=== PATIENT | male | born 1985 | race Caucasian/White ===

== ENCOUNTER 2019-06-23 12:21 | Emergency (ER) | payer OTHER, SELFPAY ==
[2019-06-23 12:23] VITALS: BP 142/73; PULSE 86; RESP 17; TEMP 36.8; O2SAT 99; BMI 33.0
--- NOTE | 2019-06-23 13:19 | CT_ITS ---
STUDY: CT BRAIN WITHOUT CONTRAST REASON FOR EXAM: Male, 34 years old. NUMBNESS RADIATION DOSAGE (If Supplied By Facility): CTDIvol = ( 44.99 ) mGy, DLP = ( 796.11 ) mGycm TECHNIQUE: Transaxial CT imaging of the brain was performed without administration of intravenous contrast material. Individualized dose optimization techniques were used for this CT. COMPARISON: No relevant priors. FINDINGS: Normal soft tissue structures. Normal calvarium. Normal size ventricles and extra-axial spaces for the patient''s age. Normal white matter tracts of the cerebral hemispheres. Normal basal ganglia and thalami. Normal brainstem. Normal cerebellum. There is no intracranial hemorrhage. There are no findings of an acute ischemic infarction. Mucosal thickening of the ethmoid sinuses bilaterally. Bilateral frontal sinusitis. CT/Brain/Head without Contrast IMPRESSION: Mucosal thickening of the ethmoid sinuses bilaterally. Bilateral frontal sinusitis. Electronically Signed: Anibal Villanueva, at 14:00 EST , Service support ,
--- NOTE | 2019-06-23 13:20 | CT_ITS ---
STUDY: CT SOFT TISSUE NECK WITHOUT CONTRAST REASON FOR EXAM: Male, 34 years old. NUMBNESS RADIATION DOSAGE (If Supplied By Facility): CTDIvol = ( 17.89 ) mGy, DLP = ( 540.53 ) mGycm TECHNIQUE: The patient was scanned in a multi-detector CT scanner. High resolution transaxial imaging was performed without the administration of intravenous contrast material. Sagittal and coronal images were reconstructed. Individualized dose optimization techniques were used for this CT. COMPARISON: None. FINDINGS: Normal bilateral parotid glands. Normal bilateral assistant broker spaces. Normal bilateral parapharyngeal spaces. Normal bilateral carotid spaces. Normal bilateral sublingual and submandibular glands and spaces. Normal visualized nasopharynx. Normal retropharyngeal space. Normal perivertebral space. Normal visualized bilateral faucial tonsils. The visualized tongue, tongue base and oropharynx are normal. The visualized cervical lymph nodes (levels I-) are within normal size limits, and maintain normal morphology. There is no demonstrated solid or cystic mass lesion. Normal epiglottis, bilateral vallecula and hypopharynx. The pre-epiglottic and paraglottic adipose spaces are normal. Normal visualized bilateral piriform sinuses, aryepiglottic folds, vocal cords, and arytenoid-cricoid articulations. Normal subglottic trachea. Normal bilateral lobes of the thyroid gland. Normal visualized pulmonary apices. Mucosal polyps or retention cysts in the left maxillary sinus. Minimal thickening of the right maxillary sinus. Mucosal thickening of the ethmoid sinuses bilaterally as well as the frontal sinuses. Straightening of the normal cervical lordosis. CT/Soft Tissue Neck without Contr IMPRESSION: Sinusitis. Electronically Signed: Anibal Villanueva, at 14:02 EST , Service support ,
--- NOTE | 2019-06-23 14:30 | ED.DCSUM_ITS ---
- ER Visit Summary Date of Service: 06/23/19 Chief Complaint: Numbness to lower lip History of Present Illness: The patient is a 34 M who presents with numbness and tingling to his lower lip and the tip of his tongue that began today. Patient states it is gradually gotten worse throughout the day. Patient states it is localized to the lower lip, chin, and tip of his tongue. Patient denies any headaches. Patient denies any difficulty talking. Patient denies any difficulty swallowing. Patient denies any difficulty breathing. Patient denies any other facial numbness or weakness. Patient denies any extremity numbness or weakness. Physical Examination: Vital signs are stable. Patient is afebrile. Patient is in no acute distress. Oral mucosa is pink and moist. Tongue is midline. There is good motion of the tongue. Oropharynx is clear. Airway is patent. Neck is supple. Trachea is midline. There is no JVD. There is no lymphadenopathy noted. Cranial nerves II through XII are intact. Strength is 5/5 bilateral knee upper and lower extremities. There is good range of motion. There is some decreased sensation to the lower lip and anterior chin. There is no edema, erythema, ecchymosis, discharge, or drainage. Heart was regular rate and rhythm. Lungs are clear and equal bilaterally. Test Results: CT scan of the brain was obtained. There is no acute intracranial abnormality. CT scan of the soft tissue neck was obtained. There is no abscess or mass. There is evidence of sinusitis on the CT scans. These were interpreted by the radiologist and reviewed by myself. Emergency Department Course and Treatment: Patient was feeling better on reevaluation. Patient was advised of his findings. Patient was instructed to follow-up with his primary care physician in 5 to 7 days. Patient understood and was agreeable with the plan. All questions were answered. Disposition: Discharge home Impression: Facial paresthesias This note was generated with [employer] dictation software. It may contain incorrect words, spelling, and punctuation that were not noted in review of the chart prior to signing ED Disposition - Plan for ED Patient: Disposition: Home or Assisted Living Diagnosis: Facial paresthesia Instructions: Paraesthesias Referrals: Care Physician,No Primary [Primary Care Provider] - Sharon Fernandez MD [STAFF PHYSICIAN] - 5-7 Days
== END 2019-06-23 14:40 | disposition home or self-care (01) ==
PROVIDERS: Emergency Provider Emergency Medicine
DX: R20.2 Paresthesia of skin (principal); E66.9 Obesity, unspecified; Z68.33 Body mass index [BMI] 33.0-33.9, adult; Z72.0 Tobacco use
CPT/HCPCS: 70450; 70490; 99282